=== PATIENT | male | born 1995 | race Caucasian/White ===

== ENCOUNTER 2016-08-06 03:59 | Emergency (ER) | payer BC, OTHER ==
[2016-08-06 04:12] VITALS: BP 140/79
[2016-08-06] MEDS ORDERED: ACETAMINOPHEN 500 MG TAB PO ONE (05:30)
== END 2016-08-06 06:20 | disposition home or self-care (01) ==
LOC: ER 03:59
DX: S93.401A Sprain of unspecified ligament of right ankle, initial encounter (principal); S90.31XA Contusion of right foot, initial encounter; J45.909 Unspecified asthma, uncomplicated; Z88.6 Allergy status to analgesic agent; W20.8XXA Other cause of strike by thrown, projected or falling object, initial encounter; Y93.89 Activity, other specified; Y92.89 Other specified places as the place of occurrence of the external cause; Y99.8 Other external cause status
CPT/HCPCS: 73610; 73630